=== PATIENT | female | born 2005 | race Caucasian/White ===

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

== ENCOUNTER 2024-09-09 09:44 | Emergency (ER) | payer OTHER, BC ==
[~2024-09-09] VITALS: Ht 170.2 cm; Wt 123.2 kg
[2024-09-09] MEDS ORDERED: DULOXETINE HCL30 MG PO (09:59)
[2024-09-09] MEDS ORDERED: HYDROXYZINE HCL50 MG PO (10:00)
[2024-09-09] MEDS ORDERED: SODIUM CHLORIDE 0.9% 1,000 ML IV ONE (10:45)
[2024-09-09] MEDS ORDERED: ondansetron HCL 4 MG/2 ML VIAL IV ONE (10:45)
[2024-09-09 11:06] LABS: BASOPHILS 0.3 % (0-2); EOSINOPHILS 1.2 % (0-6); HEMOGLOBIN 12.7 g/dL (12.0-18.0); LYMPHOCYTES 22.5 % (24-44); MCH 30.7 (27-36); MCHC 34.4 g/dl (30-36); MCV 89.2 fl (81-99); MONOCYTES 6.2 % (0-12); NEUTROPHILS 69.8 % (39-80); PLATELET COUNT 211 K/uL (140-440); RBC 4.15 M/ul (4.3-5.7); RDW 14.1 (10.5-15.0)
[2024-09-09 11:15] LABS: ANION GAP 14.2 (7-21); BUN/CREATININE RATIO 16.86 (6.0-28.6); CALCIUM 9.3 mg/dL (8.5-10.1); CREATININE, SERUM 0.83 mg/dL (0.55-1.02); POTASSIUM 4.2 mmol/L (3.5-5.1)
[2024-09-09 13:02] VITALS: BP 141/86
== END 2024-09-09 13:04 | disposition home or self-care (01) ==
LOC: ED 09:44
PROVIDERS: Emergency Medicine
DX: S09.90XA Unspecified injury of head, initial encounter (principal); S06.0X0A Concussion without loss of consciousness, initial encounter; W18.30XA Fall on same level, unspecified, initial encounter; Z88.5 Allergy status to narcotic agent
CPT/HCPCS: 36415; 70450; 80048; 85025; 96374; 99284-25; J2405; J7030